=== PATIENT | male | born 1950 | race Caucasian/White ===

== ENCOUNTER 2020-08-16 03:45 | Emergency (ER) | payer MEDICARE ==
[~2020-08-16] VITALS: Ht 177.8 cm; Wt 99.0 kg
--- NOTE | 2020-08-16 03:49 | PHYS DOC ---
Past History Past Medical History: Anemia, Angina, Anxiety, Arthritis, CAD, GERD, GI Bleed, Hypertension Past Medical History obstructive sleep apnea, rheumatoid arthrits, PTSD, Barretts esophasgus, urinary retention (BALJIT JENKINS MD) Past Surgical History Small bowel obstruction- (BALJIT JENKINS MD) General Adult HPI: HPI: ".. I ve been passing dark tarry stools .. all day... it started at about ll am.. ".." I get really dizzy when I stand up..." Patient is a 69 year old MALE who presents with above hx and complaints of GI bleeding . Pt. recently had Small Bowel resection for obstruction on 07/24/2020 at [facility]. Pt. reportedly hypotensive at long-term today. Patient admitted to [facility] [place] [facility] on 08/15/2020. Patient has past medical history of Christiansen's esophagitis with dysphagia and dysplasia, prostate hyperplasia, urinary retention, arteriosclerotic heart disease, angina, gastroesophageal reflux, esophagitis, PTSD, rheumatoid arthritis, obstructive sl eep apnea, hypertension,and decondition. Patient follows with Dr. Amato as a primary. (BALJIT JENKINS MD) Review of Systems: Review of Systems: Constitutional: Denies fever or chills Eyes: Denies change in visual acuity HENT: Denies nasal congestion or sore throat Respiratory: Denies cough or shortness of breath Cardiovascular: Denies chest pain or edema GI: Complains of epigastric abdominal pain, nausea, bloody stools : Denies dysuria Musculoskeletal: Denies back pain or joint pain Integument: Denies rash Neurologic: Denies headache, focal weakness or sensory changes Endocrine: Denies polyuria or polydipsia Lymphatic: Denies swollen glands Psychiatric: Denies depression or anxiety (BALJIT JENKINS MD) Family History: Family History: Noncontributory to presentation (BALJIT JENKINS MD) Current Medications: Current Meds: See nursing for home meds (BALJIT JENKINS MD) Allergies: Allergies: No known drug allergies (BALJIT JENKINS MD) Physical Exam: PE: Constitutional: in acute distress, ill in appearance. [] HENT: Normocephalic, atraumatic, bilateral external ears normal, oropharynx moist, no oral exudates, nose normal. [] Eyes: PERRLA, EOMI, conjunctiva normal, no discharge. [] Neck: Normal range of motion, no tenderness, supple, no stridor. [] Cardiovascular:Heart rate regular rhythm, no murmur, PMI to left Lungs & Thorax: Bilateral breath sounds equal apex with scattered wheezes on auscultation [] Abdomen: Bowel sounds hyperactive, soft, epigastric tenderness, no masses, no pulsatile masses. Healing midline scar. Black tarry stools Skin: Warm, dry, no erythema, no rash. Or turgor Back: No tenderness, no CVA tenderness. [] Extremities: No tenderness, no cyanosis, no clubbing, ROM intact, no edema. Arthritic changes. Right shoulder scar Neurologic: Alert and oriented X 3, moves all extremities on request, has distal sensory,, no gross focal deficits noted. [] Psychologic: Affect anxious, judgement normal, mood normal. [] (BALJIT JENKINS MD) EKG: EKG: My interpretation EKG shows a sinus rhythm at 78 bpm. No findings of acute STEMI of contralateral changes. [] (BALJIT JENKINS MD) Radiology/Procedures: Radiology/Procedures: [][place] [address] IMAGING REPORT Signed PATIENT: RICARDO DAN ACCOUNT: [id number] : 1950 LOCATION: ER AGE: 69 SEX: M EXAM STATUS: REG ER ORD. PHYSICIAN: BALJIT JENKINS MD REASON: Abd pain, dark red stools, post op small bowel resection 07/24/20 PROCEDURE: ACUTE ABDOMEN SERIES PA chest and AP upright and supine abdomen x-rays HISTORY: Abdominal pain. Dark red bloody stools. History of small bowel resection 2 weeks ago. FINDINGS: Heart size normal. Discoid atelectasis left lung base. No pneumoperitoneum. Nasogastric tube abnormally positioned at the lower esophagus the tip angled retrograde. No pneumoperitoneum. Mild gas within the large and small bowel. Suture line at the right abdomen presumably at site of small bowel resection and anastomosis. Small volume of stool within the left-sided colon. No bowel obstruction or ileus evident. Pelvic phleboliths. IMPRESSION: 1. Abnormal positioning of the nasogastric tube within the distal esophagus the tip of the tube angled retrograde. Repositioning of the tube to the stomach would be of benefit. 2. Postoperative changes in the abdomen. No bowel obstruction. Electronically signed by: Cristal Parnell MD (08/16/2020 5:26 AM) [facility] DICTATED AND SIGNED BY: CRISTAL PARNELL MD DATE: 08/16/20 0523 CC: BALJIT JENKINS MD; THERESA AMATO MD ~MTH0 0 (BALJIT JENKINS MD) Radiology/Procedures: PROCEDURE: KUB PROCEDURE: XR ABDOMEN 1V STUDY DATE: 08/16/2020 CLINICAL INDICATION / HISTORY: Reason: s/p adjustment of NGT / Spl. Instructions: / History: . TECHNIQUE: Single AP image of the abdomen was obtained. COMPARISON: Acute abdominal series 08/16/2020 at 4:44 AM FINDINGS: There has been interval advancement of the enteric tube with the tip now looped in the gastric fundus, beyond the gastroesophageal junction. Gas pattern shows mild distention of small bowel loops. Lung bases are clear. Cholecystectomy clips are present. IMPRESSION: Interval advancement of the enteric tube, now in the proximal stomach. Electronically signed by: Eduardo Luu MD (08/16/2020 8:15 AM) [id number] (PAYAL RUBI DO) Heart Score: HEART Score for Chest Pain: HEART Score for Chest Pain Response (Comments) Value History Slighlty/Non-Suspicious 0 ECG Normal 0 Age > 65 2 Risk Factors 1 or 2 Risk Factors 1 Troponin < Normal Limit 0 Total 3 Risk Factors: Risk Factors: DM, Current or recent (<one month) smoker, HTN, HLP, family history of CAD, obesity. Risk Scores: Score 0 - 3: 2.5% MACE over next 6 weeks - Discharge Home Score 4 - 6: 20.3% MACE over next 6 weeks - Admit for Clinical Observation Score 7 - 10: 72.7% MACE over next 6 weeks - Early Invasive Strategies (BALJIT JENKINS MD) Course & Med Decision Making: Course & Med Decision Making Pertinent Labs and Imaging studies reviewed. (See chart for details) Discussed presentation, testing and treatment plan with Dr. Saucedo's at [facility]- Advised no ICU beds currently available at [facility]. Discussed presentation, testing and tx plan with Dr. Villela- will accept pt. at [facility]. Plan GI consult after transfusion. Transfer to [facility]- ICU 106. Awaiting PRBC for transfusion at shift change. Critical Care 60 min. Impression: 1. Acute GI Bleed 2. Hx. of small bowel obstruction and hernia repair on 07/24/2020- ( [facility] [address] 3. Anemia Hgb 7.6 4. Elevated BUN 70 5. Hypotension [] (BALJIT JENKINS MD) Course & Med Decision Making Sign out received from Dr. Jenkins for patient awaiting transfer to [facility]. staff combat information center officer reports patient's blood pressure starting to decline. Blood transfusion started. Blood pressure stabilized. Calcium ordered to be given between units of pRBCs. Additionally, AAS with finding of NGT with malfunctioning. NGT adjusted with advancement. Repeat XR obtained with improved positioning. Patient to continue transfer to [facility] (PAYAL RUBI DO) Dragon Disclaimer: Dragon Disclaimer: This electronic medical record was generated, in whole or in part, using a voice recognition dictation system. (BALJIT JENKINS MD) Dragon Disclaimer This chart was dictated in whole or in part using Voice Recognition software in a busy, high-work load, and often noisy Emergency Department environment. It may contain unintended and wholly unrecognized errors or omissions. (BALJIT JENKINS MD) Dragon Disclaimer This chart was dictated in whole or in part using Voice Recognition software in a busy, high-work load, and often noisy Emergency Department environment. It may contain unintended and wholly unrecognized errors or omissions. (BALJIT JENKINS MD) Dragon Disclaimer This chart was dictated in whole or in part using Voice Recognition software in a busy, high-work load, and often noisy Emergency Department environment. It may contain unintended and wholly unrecognized errors or omissions. (BALJIT JENKINS MD) BALJIT JENKINS MD Aug 16, 2020 03:49 PAYAL RUBI DO Aug 16, 2020 08:19
--- NOTE | 2020-08-16 04:07 | EKG ---
[address] [address] Test Date: 2020-08-16 Test Time: 03:53:30 Pat Name: RICARDO DAN Department: Room: Gender: M Research Investigator: : 1950 Requested By: BALJIT HIGHTOWER Order Number: [id number] Reading MD: Measurements Intervals [place] Rate: 79 P: 45 AR: 132 QRS: 26 QRSD: 74 T: 15 QT: 384 QTc: 441 Interpretive Statements SINUS RHYTHM OTHERWISE NORMAL ECG RI6.02 No previous ECG available for comparison
[2020-08-16] MEDS ORDERED: MORPHINE SULFATE 10 MG/ML SYRINGE. ONE (04:14)
[2020-08-16 04:21] LABS: BASO # 0.1 x10^3/uL (0.0-0.2); BASO % 1 % (0-3); EOS # 0.4 x10^3/uL (0.0-0.7); EOS % 5 % (0-3); HEMATOCRIT 23.3 % (39.0-53.0); HEMOGLOBIN 7.6 g/dL (13.0-17.5); LYMPH % 27 % (24-48); MEAN CORPUSCULAR HEMOGLOBIN 32 pg (25-35); MEAN CORPUSCULAR HGB CONC 33 g/dL (31-37); MEAN CORPUSCULAR VOLUME 97 fL (79-100); MONO # 0.6 x10^3/uL (0.0-1.1); MONO % 9 % (0-9); NEUT # 4.2 x10^3uL (1.8-7.7); NEUT % 58 % (31-73); PLATELET COUNT 198 x10^3/uL (140-400); RED BLOOD COUNT 2.41 x10^6/uL (4.30-5.70); RED CELL DISTRIBUTION WIDTH 13.1 % (11.5-14.5); WHITE BLOOD COUNT 7.2 x10^3/uL (4.0-11.0)
[2020-08-16] MEDS ORDERED: IV NORMAL SALINE 1,000ML 1,000 ML IV SCH (04:30)
[2020-08-16] MEDS ORDERED: IV RINGERS SOLUTION,LACTATED 1,000 ML IV SCH (04:30)
[2020-08-16] MEDS ORDERED: diphenhydrAMINE 50 MG/ML VIAL IV ONE (04:30)
[2020-08-16] MEDS ORDERED: FAMOTIDINE 20 MG/2 ML VIAL IVP ONE (04:30)
[2020-08-16] MEDS ORDERED: ONDANSETRON PF 4 MG/2 ML VIAL. IVP ONE ×2 (04:30→07:45)
[2020-08-16 04:31] LABS: CALCIUM 7.9 mg/dL (8.5-10.1); CREATININE 0.9 mg/dL (0.7-1.3); GFR 83.2
[2020-08-16 04:38] LABS: ALBUMIN 2.3 g/dL (3.4-5.0); DIRECT BILIRUBIN 0.1 mg/dL (0.0-0.2); TOTAL BILIRUBIN 0.1 mg/dL (0.2-1.0); TOTAL PROTEIN 5.4 g/dL (6.4-8.2)
[2020-08-16 05:13] LABS: BILIRUBIN,URINE NEG (NEG); CLARITY,URINE CLEAR; COLOR,URINE YELLOW; GLUCOSE,URINE NEG (NEG); NITRITE,URINE NEG (NEG); UROBILINOGEN,URINE 0.2 mg/dL (0.2 mg/dL)
[2020-08-16 05:14] LABS: BACTERIA,URINE 0 /HPF (0-FEW); RBC,URINE 0 /HPF (0-2); SQUAMOUS EPITHELIAL CELL,UR OCC /LPF; WBC,URINE RARE /HPF (0-4)
--- NOTE | 2020-08-16 05:28 | RAD ---
PA chest and AP upright and supine abdomen x-rays HISTORY: Abdominal pain. Dark red bloody stools. History of small bowel resection 2 weeks ago. FINDINGS: Heart size normal. Discoid atelectasis left lung base. No pneumoperitoneum. Nasogastric tub e abnormally positioned at the lower esophagus the tip angled retrograde. No pneumoperitoneum. Mild g as within the large and small bowel. Suture line at the right abdomen presumably at site of small bow el resection and anastomosis. Small volume of stool within the left-sided colon. No bowel obstruction or ileus evident. Pelvic phleboliths. IMPRESSION: 1. Abnormal positioning of the nasogastric tube within the distal esophagus the tip of the tube angle d retrograde. Repositioning of the tube to the stomach would be of benefit. 2. Postoperative changes in the abdomen. No bowel obstruction. Electronically signed by: Arnoldo Parnell MD (08/16/2020 5:26 AM) [facility]
[2020-08-16] MEDS ORDERED: PANTOPRAZOLE IV 80 MG in IV NORMAL SALINE 100ML 100 ML IV ONE (05:30)
[2020-08-16] MEDS ORDERED: IV NORMAL SALINE 100ML 100 ML ONE (05:33)
[2020-08-16] MEDS ORDERED: PANTOPRAZOLE IV 40 MG VIAL. ONE (05:33)
[2020-08-16 06:57] VITALS: BP 90/53
[2020-08-16 07:12] VITALS: BP 96/58
[2020-08-16] MEDS ORDERED: CALCIUM GLUCONATE 1,000 MG/10 ML VIAL IV ONE (07:15)
[2020-08-16] MEDS ORDERED: MORPHINE SULFATE 10 MG/ML SYRINGE. SQ ONE (07:30)
[2020-08-16 07:52] VITALS: BP 92/54
--- NOTE | 2020-08-16 08:17 | RAD ---
PROCEDURE: XR ABDOMEN 1V STUDY DATE: 08/16/2020 CLINICAL INDICATION / HISTORY: Reason: s/p adjustment of NGT / Spl. Instructions: / History: . TECHNIQUE: Single AP image of the abdomen was obtained. COMPARISON: Acute abdominal series 08/16/2020 at 4:44 AM FINDINGS: There has been interval advancement of the enteric tube with the tip now looped in the gastric fundus , beyond the gastroesophageal junction. Gas pattern shows mild distention of small bowel loops. Lung bases are clear. Cholecystectomy clips are present. IMPRESSION: Interval advancement of the enteric tube, now in the proximal stomach. Electronically signed by: Eduardo Luu MD (08/16/2020 8:15 AM) [id number]
== END 2020-08-16 08:10 | disposition short-term general hospital (02) ==
LOC: ER 03:45
DX: K92.2 Gastrointestinal hemorrhage, unspecified (principal); D64.9 Anemia, unspecified; R79.89 Other specified abnormal findings of blood chemistry; I95.9 Hypotension, unspecified; F41.9 Anxiety disorder, unspecified; M19.90 Unspecified osteoarthritis, unspecified site; I25.10 Atherosclerotic heart disease of native coronary artery without angina pectoris; K21.9 Gastro-esophageal reflux disease without esophagitis; G47.33 Obstructive sleep apnea (adult) (pediatric); M06.9 Rheumatoid arthritis, unspecified; F43.10 Post-traumatic stress disorder, unspecified; Z86.2 Personal history of diseases of the blood and blood-forming organs and certain disorders involving the immune mechanism
CPT/HCPCS: 36415; 36430; 51702; 74018; 74022; 80048; 80076; 81001; 82550; 83690; 84484; 85025; 85610; 85730; 86850; 86900; 86901; 86920; 93005; 96361; 96365; 96366; 96372; 96375; 99291; 99292; C9113; J1200; J2270; J2405; J3010; J3490; J7030; J7120; P9016